=== PATIENT | female | born 1980 | race Caucasian/White ===

== ENCOUNTER 2018-01-22 13:45 | Inpatient (IN) | payer OTHER ==
[~2018-01-22] VITALS: Ht 154.9 cm; Wt 73.9 kg
[2018-01-22 15:00] VITALS: BP 104/60
[2018-01-22] MEDS ORDERED: OXYTOCIN 30 UNITS/LACT RINGERS 500 ML IV PRN (17:24)
[2018-01-22] MEDS ORDERED: OXYTOCIN 30 UNITS/LACT RINGERS 500 ML IV ONE (17:24)
[2018-01-22] MEDS ORDERED: RINGERS SOLUTION,LACTATED 1,000 ML IV PRN (17:24)
[2018-01-22] MEDS ORDERED: PREN1TAB80 PO (17:29)
[2018-01-22] MEDS ORDERED: METOCLOPRAMIDE HCL 5 MG/ML 2 ML VIAL IVP PRN (17:30)
[2018-01-22] MEDS ORDERED: CITRIC ACID/SODIUM CITRATE 30 ML SOLUTION UDCUP PO PRN (17:30)
[2018-01-22] MEDS ORDERED: LIDOCAINE/PF 1% 30 ML VIAL INJ PRN (17:30)
[2018-01-22] MEDS ORDERED: FentaNYL CITRATE-PF 100 MCG/2 ML VIAL IVP PRN (17:30)
[2018-01-22 17:51] LABS: BASOPHILS % (AUTO) 0.3 % (0.0-2.0); EOSINOPHILS % (AUTO) 0.6 % (1.0-6.0); HEMATOCRIT 40.1 % (36-46); HEMOGLOBIN 13.7 g/dL (12.0-16.0); LYMPHOCYTES # (AUTO) 2.1 K/uL (1.0-4.8); MEAN CORPUSCULAR HEMOGLOBIN 31.8 pg (26.0-34.0); MEAN CORPUSCULAR HGB CONC 34.2 G/dL (31.0-37.0); MEAN CORPUSCULAR VOLUME 93 fL (80-100); MONOCYTES # (AUTO) 0.5 K/uL (0.1-1.0); NEUTROPHILS % (AUTO) 65.1 % (40.0-70.0); PLATELET COUNT (AUTO)-OB 141 K/uL (150-450); RED BLOOD CELL COUNT(AUTO) 4.31 MIL/uL (4.00-5.20); RED CELL DISTRIBUTION WIDTH 13.5 % (11.5-14.5)
[2018-01-22] MEDS: RINGERS SOLUTION,LACTATED 1,000 ML IV SCH ×3 (18:44→22:20)
[2018-01-22] MEDS ORDERED: AMPICILLIN SODIUM 2 GM/NS 100 ML IV ONE (18:45)
[2018-01-22] MEDS ORDERED: OXYGEN THERAPY IH SCH (20:00)
[2018-01-22 20:13] LABS: GLUCOMETER DEV NAME(LOC) 4S 8; GLUCOSE,POINT OF CARE 84 MG/DL (70-110)
[2018-01-22] MEDS ORDERED: LIDOCAINE/PF 2% 5 ML VIAL ONE (21:31)
[2018-01-22] MEDS ORDERED: ROPIVACAINE HCL/PF 0.2% 100 ML ED ONE (21:32)
[2018-01-22] MEDS ORDERED: DiphenhydrAMINE HCL 50 MG/ML VIAL IVP PRN (21:45)
[2018-01-22] MEDS ORDERED: NALBUPHINE HCL 10 MG/ML VIAL IVP PRN (21:45)
[2018-01-22] MEDS ORDERED: ONDANSETRON HCL 4 MG/2 ML VIAL IVP PRN (21:45)
[2018-01-22] MEDS ORDERED: ROPIVACAINE HCL/PF 0.2% 100 ML ED PRN (21:45)
[2018-01-22] MEDS ORDERED: AMPICILLIN SODIUM 1 GM/NS 50 ML IV SCH (22:45)
[2018-01-23] MEDS ORDERED: GLYCERIN/WITCH HAZEL LEAF 40 PADS JAR TP PRN (02:00)
[2018-01-23] MEDS ORDERED: BENZOCAINE 20%/MENTHOL 56 GM SPRAY CANISTER TP PRN (02:00)
[2018-01-23] MEDS ORDERED: ACETAMINOPHEN/CODEINE 300-30 MG TABLET PO PRN ×2 (02:00)
[2018-01-23] MEDS: LANOLIN 7 GM OINTMENT TP PRN ×2 (05:03→12:04)
[2018-01-23] MEDS: IBUPROFEN 800 MG TABLET PO SCH ×4 (05:03→22:19)
[2018-01-23] MEDS: MAGNESIUM HYDROXIDE SUSPENSION 30 ML UDCUP PO SCH ×2 (09:00→22:13)
[2018-01-24] MEDS: IBUPROFEN 800 MG TABLET PO SCH (04:46)
[2018-01-24] MEDS ORDERED: IBUP-2071 PO (10:06)
== END 2018-01-24 11:55 | disposition home or self-care (01) | DRG 775 ==
LOC: OBSVTOIN 13:45 → 4S 13:45
PROVIDERS: ADMIT Obstetrics & Gynecology; ATTEND Obstetrics & Gynecology
PROC: 10E0XZZ Delivery of Products of Conception, External Approach (ICD-10-PCS; principal; 2018-01-23)
PROC: 0HQ9XZZ Repair Perineum Skin, External Approach (ICD-10-PCS; 2018-01-23)
PROC: 3E0R3BZ Introduction of Anesthetic Agent into Spinal Canal, Percutaneous Approach (ICD-10-PCS; 2018-01-23)
PROC: 00HU33Z Insertion of Infusion Device into Spinal Canal, Percutaneous Approach (ICD-10-PCS; 2018-01-23)
DX: O69.81X0 Labor and delivery complicated by cord around neck, without compression, not applicable or unspecified (principal); O70.0 First degree perineal laceration during delivery; Z3A.38 38 weeks gestation of pregnancy; Z37.0 Single live birth; O09.513 Supervision of elderly primigravida, third trimester
CPT/HCPCS: J0290; J2590; J2795; J3490; J7120